=== PATIENT | male | born 1975 | race Caucasian/White ===

== ENCOUNTER → 2019-06-11 08:25 | Outpatient (BNVA) | payer MEDICARE, SELFPAY | PROVIDERS: Referring Provider Nurse Practitioner; Visit Provider Specialist | DX: G62.9 Polyneuropathy, unspecified (principal) | CPT/HCPCS: 99204; 99214 ==

== ENCOUNTER → 2019-06-18 08:10 | Outpatient (BNVA) | payer MEDICARE, SELFPAY | PROVIDERS: PCP Nurse Practitioner Family; Visit Provider Anesthesiology | DX: M48.061 Spinal stenosis, lumbar region without neurogenic claudication (principal); M51.36 Other intervertebral disc degeneration, lumbar region; M54.16 Radiculopathy, lumbar region; M50.30 Other cervical disc degeneration, unspecified cervical region; M54.9 Dorsalgia, unspecified; G62.9 Polyneuropathy, unspecified; G43.909 Migraine, unspecified, not intractable, without status migrainosus; Z79.891 Long term (current) use of opiate analgesic | CPT/HCPCS: 99214 ==

== ENCOUNTER → 2019-08-06 08:02 | Outpatient (BNVA) | payer MEDICARE, SELFPAY | PROVIDERS: PCP Nurse Practitioner Family; Visit Provider Anesthesiology | DX: M47.812 Spondylosis without myelopathy or radiculopathy, cervical region (principal); M50.30 Other cervical disc degeneration, unspecified cervical region; M48.061 Spinal stenosis, lumbar region without neurogenic claudication; M54.16 Radiculopathy, lumbar region; M51.36 Other intervertebral disc degeneration, lumbar region; G62.9 Polyneuropathy, unspecified; Z79.891 Long term (current) use of opiate analgesic | CPT/HCPCS: 99214 ==

== ENCOUNTER 2019-10-28 14:08 | Outpatient (CLI) | payer MEDICARE, SELFPAY ==
--- NOTE | 2019-10-28 14:32 | MRR_ITS ---
PROCEDURE INFORMATION: Exam: MR Lumbar Spine Without and With Contrast. Exam date and time: 10/28/2019 3:00 PM Age: 44 years old Clinical indication: Low back pain; Patient HX: Lumbar pain chronic/sciatica/right leg weakness; Additional info: Spinal stenosis of lumbar region with neurogenic claudicatio TECHNIQUE: Imaging protocol: Multiplanar magnetic resonance images of the lumbar spine without and with intravenous contrast. Contrast material: PROHANCE; Contrast volume: 17 ml; Contrast route: IV; COMPARISON: MRI Lumbar Spine w/o [id number] 12/12/2018 4:38 PM FINDINGS: Vertebrae: There is an intraosseous hemangioma in T5 visualized on the surgical instrument maker. There is mild dextroscoliosis. The lumbar vertebral body heights are maintained and unchanged compared to the prior exam. A few small intraosseous hemangiomas are noted with the most prominent at left L1 pedicle and L2 vertebral body. There is diffuse desiccation of all discs in the lumbar spine. There are hypertrophic changes of the facet joints but no critical stenosis. Spinal epidural space: No enhancing epidural fluid collection. Spinal cord: The conus ends posterior to L1/L2. L1-L2: At L1-L2, there is no interval change with disc space narrowing but no disc bulge protrusion or critical stenosis. L2-L3: At L2-L3, postoperative changes with narrow posterior laminectomy defect is again noted. There is an unchanged small disc bulge and facet and ligamentum flavum hypertrophy with unchanged moderate canal stenosis. Mild foraminal narrowing is noted and is unchanged. L3-L4: At L3-L4, postoperative changes of narrow posterior midline laminectomy are again noted with diffuse disc bulge, facet and ligamentum flavum hypertrophy resulting in moderate to severe central canal stenosis unchanged since the prior exam. Previously visualized right-sided sub articular disc protrusion with inferior extension into the right lateral recess is unchanged in appearance. L4-L5: At L4-L5, there are postoperative changes of prior laminectomy. There is diffuse disc bulge with facet and ligamentum flavum hypertrophy resulting in severe stenosis unchanged since the prior exam. Bilateral foraminal narrowing is unchanged in appearance. Disc bulge results in narrowing at the left L4 lateral recess and left foramina. L5-S1: At L5-S1, postoperative changes of prior laminectomy are noted with moderate central canal stenosis due to diffuse disc bulge and facet and ligamentum flavum hypertrophy. The disc results in unchanged foraminal narrowing right greater than left due to asymmetry of the disc bulge. The greatest enhancing scar tissue is noted adjacent to the disc protrusion and stenosis at L5-S1 especially along the right anterior aspect of the thecal sac extending into the right foramina series 11, image 27. Sacrum/coccyx: There is a transitional lumbosacral junction with partial lumbarization of the S1 vertebral body. Facet hypertrophy results in greater left foraminal narrowing. At S1-2, there is a rudimentary disc space without disc bulge or protrusion. There is mild foraminal narrowing right greater than left due to the facet hypertrophy. Transitional lumbosacral junction with lumbarization of S1 as above. There is mild enhancing scar tissue at all of the operative levels from L3-L4 to S1. 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 No discitis or osteomyelitis. Kidneys and ureters: Probable renal cortical cysts are noted and unchanged on the coronal images. Bladder: Postoperative changes and artifact are noted in the cervical spine on surgical instrument maker images. Probable artifact results in a flattened appearance of the cervical spinal cord at the level of the C3-C4 disc space. Soft tissues: Unremarkable. MR/MR lumbar spine wo/w con [id number] IMPRESSION: 1. Marked narrowing of the cervical spinal canal at C3-C4 on the surgical instrument maker images with flattening of the ventral spinal cord and cord edema concerning for significant stenosis or myelopathy. 2. Unchanged exam. Unchanged congenitally small canal with multilevel disc bulging facet hypertrophy and ligamentum min in flavum hypertrophy resulting in moderate to severe central canal stenosis most severe at L4-L5. No new disc bulge or protrusion. 3. Unchanged right subarticular disc protrusion with inferior extension and encroachment on the right L4 lateral recess. 4. There is some prominent enhancing scar tissue adjacent to the disc bulge/protrusion at L5-S1.
== END 2019-10-28 14:09 | disposition home or self-care (01) ==
LOC: RADWPI 14:22
PROVIDERS: Family Provider Nurse Practitioner Family; PCP Nurse Practitioner Family; Visit Provider Neurological Surgery
DX: M48.062 Spinal stenosis, lumbar region with neurogenic claudication (principal); M51.26 Other intervertebral disc displacement, lumbar region
CPT/HCPCS: 72158; A9579

== ENCOUNTER → 2019-12-09 08:22 | Outpatient (BNVA) | payer MEDICARE, SELFPAY | PROVIDERS: Family Provider Nurse Practitioner Family; PCP Nurse Practitioner Family; Visit Provider Anesthesiology | DX: M51.36 Other intervertebral disc degeneration, lumbar region (principal); M48.061 Spinal stenosis, lumbar region without neurogenic claudication; M54.16 Radiculopathy, lumbar region; G62.9 Polyneuropathy, unspecified; M50.30 Other cervical disc degeneration, unspecified cervical region; M47.812 Spondylosis without myelopathy or radiculopathy, cervical region; Z79.891 Long term (current) use of opiate analgesic | CPT/HCPCS: 99214 ==

== ENCOUNTER 2019-12-09 17:50 | Emergency (ER) | payer MEDICARE, SELFPAY ==
[2019-12-09 18:35] VITALS: BP 165/86; PULSE 71; RESP 16; TEMP 36.8; O2SAT 94; BMI 35.2
--- NOTE | 2019-12-09 19:00 | XRR_ITS ---
PROCEDURE INFORMATION: Exam: XR Chest, 1 View Exam date and time: 12/09/2019 7:25 PM Age: 44 years old Clinical indication: Chest pain; Prior surgery; Surgery type: Neck; Additional info: Chest pain x 2 days, leg swelling TECHNIQUE: Imaging protocol: XR of the chest Views: 1 view. COMPARISON: CTA Chest-Pulmonary Emb [id number] 09/25/2017 3:03 PM FINDINGS: Lungs: Lungs are well aerated without a focal area of consolidation. Pleural space: Unremarkable. No pleural effusion. No pneumothorax. Heart/Mediastinum: Unremarkable. No cardiomegaly. Bones/joints: Prior surgical fixation of the caudal aspect of the cervical spine. XR/XR chest 1V portable [id number] IMPRESSION: Lungs are well aerated without a focal area of consolidation.
[2019-12-09 19:28] LABS: Basophils % 0.7 %; Eosinophils # 0.1 10^3/uL (0.0-0.8); Eosinophils % 1.9 %; Hematocrit 38.3 % (42.0-52.0); Hemoglobin 12.3 g/dL (11.7-16.6); Lymphocytes # 1.6 10^3/uL (0.8-4.8); Lymphocytes % 27.4 %; Mean Corpuscular HGB Conc 32.1 g/dL (30.0-36.0); Mean Corpuscular Hemoglobin 27.6 pg (28.0-34.0); Mean Corpuscular Volume 85.9 fL (80-94); Mean Platelet Volume 10.4 fL (7.4-10.4); Monocytes # 0.4 10^3/uL (0.2-0.9); Monocytes % 7.3 %; Neutrophils # 3.67 10^3/uL (1.8-7.7); Neutrophils % 62.5 %; Nucleated Red Blood Cells % 0 %; Platelet Count 253 10^3/cmm (130-400); Red Blood Count 4.46 10^6/uL (4.1-5.3); White Blood Count 5.9 10^3/uL (4.0-10.0)
[2019-12-09 19:41] LABS: Troponin(5th) Baseline 7 ng/L (0-15)
[2019-12-09 19:55] LABS: Alanine Aminotransferase 24 U/L (0-41); Albumin Level 4.6 g/dL (3.5-5.2); Alkaline Phosphatase 75 IU/L (40-130); Anion Gap 14.5 (5-19); Aspartate Amino Transferase 24 U/L (0-40); Blood Urea Nitrogen 12 mg/dL (6-20); Calcium 9.2 mg/dL (8.5-10.5); Carbon Dioxide 31 mmol/L (22-29); Chloride 97 mmol/L (98-107); Globulin 2.1 g/dL (1.3-4.6); Glomerular Filtration Rate 92.1 mL/min (90-130); Glucose 114 mg/dL (65-115); NT Pro B Type Natriuretic Pept 92 pg/mL (0-125); Osmolality Calculated 285 mOsm/kg (285-295); Potassium 3.5 mmol/L (3.5-5.1); Sodium 139 mmol/L (136-145); Total Bilirubin 0.2 mg/dL (0.15-1.2); Total Protein 6.7 g/dL (6.6-8.7)
--- NOTE | 2019-12-09 21:00 | ECG_ITS ---
[facility] Test Date: 2019-12-09 Pat Name: José Antonio Ybarra Department: Room: Gender: Male Customer Relations Representative: : 1975 Requested By: Melissa Manzo Order Number: [id number] Heidi MD: Patience Arnold M.D. Measurements Intervals [place] Rate: 65 P: 44 [place]: 168 QRS: 15 QRSD: 111 T: -4 QT: 442 QTc: 460 Interpretive Statements SINUS RHYTHM MODERATE INTRAVENTRICULAR CONDUCTION DELAY [110+ ms QRS DURATION] NONSPECIFIC T-WAVE ABNORMALITY No previous ECG available for comparison Electronically Signed On 12-10-2019 22:44:58 CDT by Patience Arnold M.D. [id number]
[2019-12-09 21:50] VITALS: BP 148/86; PULSE 72; O2SAT 94
[2019-12-09 21:56] LABS: Troponin 5 2HR 6.98 ng/L (0-15)
[2019-12-09 22:08] LABS: Troponin 5 2HR Delta -0.02 ABS# (0-10)
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
[2019-12-09 22:55] LABS: INR 0.94 (0.8-1.2)
[2019-12-09 22:58] LABS: D Dimer <= 0.27 ug/mIFEU (0-0.59)
[2019-12-10] VITALS: BP 136/77; PULSE 68; RESP 16; O2SAT 96
[2019-12-10 00:58] VITALS: BP 142/84; PULSE 77; RESP 16; O2SAT 96
--- NOTE | 2019-12-10 12:44 | DCPLANNER ---
daycare manager had message to schedule a follow up appointment for patient with [facility]. daycare manager called [facility], spoke with Nayana, gave clinic patients information. daycare manager was told that patients information would be printed and reviewed. Clinic will call patient with appointment information.
--- NOTE | 2019-12-11 08:25 | DCPLANNER ---
Patient has a follow up appointment scheduled for Sunday, December 15, 2019 at 1:[address] Arnold. Clinic will call patient with appointment information.
--- NOTE | 2019-12-18 12:48 | DCPLANNER ---
Patient did attend appointment scheduled for 12.15.19 with [facility].
== END 2019-12-10 01:01 | disposition home or self-care (01) ==
PROVIDERS: Physician Assistant; Emergency Provider Emergency Medicine; PCP Nurse Practitioner Family
DX: R07.9 Chest pain, unspecified (principal); R06.00 Dyspnea, unspecified; R60.0 Localized edema; Z79.82 Long term (current) use of aspirin; M51.36 Other intervertebral disc degeneration, lumbar region; M48.061 Spinal stenosis, lumbar region without neurogenic claudication; M54.16 Radiculopathy, lumbar region; G62.9 Polyneuropathy, unspecified; M50.30 Other cervical disc degeneration, unspecified cervical region; M47.812 Spondylosis without myelopathy or radiculopathy, cervical region; Z79.891 Long term (current) use of opiate analgesic
CPT/HCPCS: 12345; 36415; 71045; 80053; 83605; 83880; 84484; 85025; 85378; 85610; 93005; 99214; 99282; 99284

== ENCOUNTER 2019-12-31 07:53 | Outpatient (CLI) | payer MEDICARE, SELFPAY ==
[2019-12-31 08:01] VITALS: BMI 34.7
--- NOTE | 2019-12-31 08:11 | ECG_ITS ---
[facility] Test Date: 2019-12-31 Pat Name: José Antonio Ybarra Department: Room: Gender: Male Electronic Engineering Technician: Aida Trenton : 1975 Requested By: Patience Arnold Order Number: [id number] Heidi MD: Patience Arnold M.D. Interpretive Statements NAME OF STUDY: LEXISCAN SESTAMIBI STRESS TEST INDICATION: Chest Pain PROCEDURE: At the baseline, the blood pressure was 145/86 mmHg, oxygen saturation 96% with a heart rate of 55 bpm. The electrocardiogram showed sinus bradycardia, normal axis with nonspecific T wave inversion in lead III, V3, V4 and V5. The Lexiscan was infused over a period of 20 seconds. A total of 0.4 milligrams of Lexiscan was infused. The stress phase was continued for a total of 5 minutes. Heart rate at the end of the stress phase was 75 bpm, oxygen saturation 97% with a blood pressure 137/86 mmHg. The EKG at the peak infusion revealed sinus rhythm with no significant ST-T wave changes. Sestamibi was injected 20 seconds after the Lexiscan infusion. Blood pressure at the end of the recovery phase was 133/84 mmHg, oxygen saturation 96% with a heart rate of 74 beats per minute. CONCLUSION: 1. No significant EKG changes with the LexiScan infusion. 2. No LexiScan induced chest pain or cardiac arrhythmia. 3. Normal blood pressure and heart rate response. 4. Sestamibi/sestamibi perfusion scan pending; see separate report. Electronically Signed On 12-31-2019 13:27:07 CDT by Patience Arnold M.D. [id number]
--- NOTE | 2019-12-31 08:12 | NMCV_ITS ---
NM alyson perf SPECT r/s* [id number] José Antonio Ybarra Age: 44 Gender: M : 1975 Exam Date: 12/31/2019 08:54 Ordering Phys: Patience Arnold MD ([email or web address]) Technologist: MOIZ Coats Exam [facility]: [facility] Indications: CHEST PAIN STRESS TEST [facility] IMAGE PROTOCOL Rest/Stress 1 Lexiscan Day Radiopharmaceutical Dose (mCi) Administration Site Administered by Rest: Tc-99m 10.9 IV MOIZ Sanchez Sestamibi Stress:Tc-99m 32.7 IV MOIZ Coats Sestamisaleem Rest: 31-Dec-2019 60 Discovery 630 Stress: 31-Dec-2019 30 Discovery 630 0.4mg Lexiscan. Images obtained in supine and prone position. SPECT RESULTS Technical Quality: Excellent Raw Data Analysis: Normal Image Corrections: No attenuation or motion correction applied Summed Stress Score: 0 Summed Rest Score: 0 Summed Difference Score: 0 PERFUSION FINDINGS Small sized perfusion abnormality of mild severity of apical lateral wall on stress images. FUNCTIONAL RESULTS (calculated via Gated SPECT) Stress Image LV EF (%): 53 Stress EDV (mL):195 TID: 0.96 Stress ESV (mL):92 FUNCTIONAL FINDINGS: The left ventricle is normal in size. Transient Ischemia Dilatation of 0.96. There is normal left ventricular systolic function. The left ventricular ejection fraction is normal with a value of 53%. There is normal left ventricular wall thickening. IMPRESSIONS 1. Small sized reversible perfusion abnormality of mild severity of apical lateral wall. This may be suggestive of a small area of ischemia in circumflex artery territory. 2. Overall left ventricular systolic function is normal without regional wall motion abnormalities. 3. The left ventricular ejection fraction is normal with a value of 53%. 4. No prior similar studies to compare. Patience Arnold MD (Electronically Signed) Final Date: 01 January 2020 16:42 S
[2019-12-31 10:25] VITALS: BP 136/95; PULSE 78
[2019-12-31] MEDS: regadenoson 0.4 Mg/5 ml Syringe IVP (10:25)
== END 2019-12-31 07:54 | disposition home or self-care (01) ==
LOC: CDL 07:53
PROVIDERS: PCP Nurse Practitioner Family; Visit Provider Internal Medicine Cardiovascular Disease
DX: R07.9 Chest pain, unspecified (principal)
CPT/HCPCS: 78452; 93017; A9500; J2785

== ENCOUNTER → 2020-02-19 13:15 | Outpatient (BNVA) | payer MEDICARE, SELFPAY | PROVIDERS: PCP Nurse Practitioner Family; Visit Provider Anesthesiology | DX: M48.061 Spinal stenosis, lumbar region without neurogenic claudication (principal); M54.16 Radiculopathy, lumbar region; M51.36 Other intervertebral disc degeneration, lumbar region; M50.30 Other cervical disc degeneration, unspecified cervical region; M47.812 Spondylosis without myelopathy or radiculopathy, cervical region; G62.9 Polyneuropathy, unspecified; Z09 Encounter for follow-up examination after completed treatment for conditions other than malignant neoplasm; Z79.891 Long term (current) use of opiate analgesic | CPT/HCPCS: 99214 ==

== ENCOUNTER → 2020-04-14 08:56 | Outpatient (BNVA) | payer MEDICARE, SELFPAY | PROVIDERS: PCP Nurse Practitioner Family; Visit Provider Anesthesiology | DX: Z09 Encounter for follow-up examination after completed treatment for conditions other than malignant neoplasm (principal); M51.36 Other intervertebral disc degeneration, lumbar region; M48.061 Spinal stenosis, lumbar region without neurogenic claudication; M54.16 Radiculopathy, lumbar region; M47.812 Spondylosis without myelopathy or radiculopathy, cervical region; M50.30 Other cervical disc degeneration, unspecified cervical region; G62.9 Polyneuropathy, unspecified; Z79.891 Long term (current) use of opiate analgesic | CPT/HCPCS: 99214 ==

== ENCOUNTER → 2020-06-16 08:51 | Outpatient (BNVA) | payer MEDICARE, SELFPAY | PROVIDERS: PCP Nurse Practitioner Family; Visit Provider Nurse Practitioner | DX: M51.36 Other intervertebral disc degeneration, lumbar region (principal); M47.812 Spondylosis without myelopathy or radiculopathy, cervical region; M50.30 Other cervical disc degeneration, unspecified cervical region; M54.16 Radiculopathy, lumbar region; G62.9 Polyneuropathy, unspecified; Z79.891 Long term (current) use of opiate analgesic | CPT/HCPCS: 99213; 99214 ==

== ENCOUNTER → 2020-08-09 11:27 | Outpatient (BNVA) | payer MEDICARE, SELFPAY | PROVIDERS: PCP Nurse Practitioner Family; Visit Provider Internal Medicine Cardiovascular Disease | DX: R06.00 Dyspnea, unspecified (principal); R60.0 Localized edema | CPT/HCPCS: 80048; 83735; 83880 ==

== ENCOUNTER → 2020-08-11 08:40 | Outpatient (BNVA) | payer MEDICARE, SELFPAY | PROVIDERS: PCP Nurse Practitioner Family; Visit Provider Nurse Practitioner | DX: M51.36 Other intervertebral disc degeneration, lumbar region (principal); M54.16 Radiculopathy, lumbar region; M48.061 Spinal stenosis, lumbar region without neurogenic claudication; M50.30 Other cervical disc degeneration, unspecified cervical region; M47.812 Spondylosis without myelopathy or radiculopathy, cervical region; G62.9 Polyneuropathy, unspecified; G43.909 Migraine, unspecified, not intractable, without status migrainosus; Z79.891 Long term (current) use of opiate analgesic | CPT/HCPCS: 99213 ==

== ENCOUNTER → 2020-09-22 09:09 | Outpatient (BNVA) | payer MEDICARE, SELFPAY | PROVIDERS: PCP Nurse Practitioner Family; Referring Provider Nurse Practitioner Family; Visit Provider Specialist | DX: S83.207A Unspecified tear of unspecified meniscus, current injury, left knee, initial encounter (principal); X58.XXXA Exposure to other specified factors, initial encounter | CPT/HCPCS: 73560; 73565 ==

== ENCOUNTER 2020-09-30 12:25 | Outpatient (CLI) | payer MEDICARE, SELFPAY ==
--- NOTE | 2020-09-30 13:00 | MR_ITS ---
WS: [id number] MRI LEFT KNEE NONCONTRAST TECHNIQUE: Axial PD, coronal PD fat sat, coronal PD, sagittal PD, and sagittal PD fat-sat images obta yosid. CLINICAL INFORMATION: M25.569 - Pain in unspecified knee COMPARISON: MRI September 29, 2017 FINDINGS: Distal quadriceps and patella tendons are intact. Hypertrophic patella. Small suprapatellar effusion. Normal ACL and PCL. Prepatellar and infrapatellar soft tissue edema. Normal lateral meniscus. Chroni c intrasubstance signal abnormality posterior horn medial meniscus similar to the prior study. Mild c hondromalacia involving the medial and lateral joint compartments. Advanced chondro malacia patella worse involving the lateral patella facet with focal chondral defect s. This is progressed since 2018. No subchondral edema. Normal medial collateral ligament. Normal LCL . MR/MR knee LT wo con* [id number] IMPRESSION: 1. Normal anterior and posterior cruciate ligaments. 2. Small suprapatellar effusion. 3. Moderate joint space narrowing medial joint compartment with chondromalacia . Tiny amount of subchondral edema. 4. No acute appearing meniscal tears. Chronic intrasubstance signal abnormalit y posterior horn medial meniscus unchanged from previous. 5. 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 This is progressed from 2018. No subchondral edema. 6. Medial and lateral collateral ligaments appear intact. 7. No other significant changes from previous.
== END 2020-09-30 12:26 | disposition home or self-care (01) ==
LOC: RADSHAW 12:28
PROVIDERS: PCP Nurse Practitioner Family; Visit Provider Specialist
DX: M25.562 Pain in left knee (principal); M22.42 Chondromalacia patellae, left knee; M25.462 Effusion, left knee
CPT/HCPCS: 73721

== ENCOUNTER → 2020-10-07 08:52 | Outpatient (BNVA) | payer MEDICARE, SELFPAY | PROVIDERS: PCP Nurse Practitioner Family; Visit Provider Nurse Practitioner | DX: Z09 Encounter for follow-up examination after completed treatment for conditions other than malignant neoplasm (principal); M51.36 Other intervertebral disc degeneration, lumbar region; M54.16 Radiculopathy, lumbar region; M48.061 Spinal stenosis, lumbar region without neurogenic claudication; M47.812 Spondylosis without myelopathy or radiculopathy, cervical region; M50.30 Other cervical disc degeneration, unspecified cervical region; G62.9 Polyneuropathy, unspecified; Z79.891 Long term (current) use of opiate analgesic | CPT/HCPCS: 99213; 99214 ==

== ENCOUNTER 2020-11-02 08:59 | Outpatient (RCR) | payer MEDICARE, SELFPAY | END 2020-11-24 23:59 | disposition home or self-care (01) | LOC: SPT 08:59 | PROVIDERS: PCP Nurse Practitioner Family; Referring Provider Specialist; Visit Provider Specialist | DX: M17.12 Unilateral primary osteoarthritis, left knee (principal); M17.11 Unilateral primary osteoarthritis, right knee | CPT/HCPCS: 97110; 97161 ==

== ENCOUNTER 2020-11-25 06:00 | Outpatient (RCR) | payer MEDICARE, SELFPAY | END 2020-12-25 23:59 | disposition home or self-care (01) | LOC: SPT 06:00 | PROVIDERS: PCP Nurse Practitioner Family; Referring Provider Specialist; Visit Provider Specialist | DX: M17.11 Unilateral primary osteoarthritis, right knee (principal) | CPT/HCPCS: 97110 ==

== ENCOUNTER → 2020-12-08 08:40 | Outpatient (BNVA) | payer MEDICARE, SELFPAY | PROVIDERS: PCP Nurse Practitioner Family; Visit Provider Nurse Practitioner | DX: M51.36 Other intervertebral disc degeneration, lumbar region (principal); M54.16 Radiculopathy, lumbar region; M48.061 Spinal stenosis, lumbar region without neurogenic claudication; M47.812 Spondylosis without myelopathy or radiculopathy, cervical region; M50.30 Other cervical disc degeneration, unspecified cervical region; M17.12 Unilateral primary osteoarthritis, left knee; G62.9 Polyneuropathy, unspecified; Z79.891 Long term (current) use of opiate analgesic | CPT/HCPCS: 99213 ==

== ENCOUNTER 2020-12-26 06:00 | Outpatient (RCR) | payer MEDICARE, SELFPAY | END 2021-01-25 23:59 | disposition home or self-care (01) | LOC: SPT 06:00 | PROVIDERS: PCP Nurse Practitioner Family; Referring Provider Specialist; Visit Provider Specialist | DX: M17.0 Bilateral primary osteoarthritis of knee (principal) | CPT/HCPCS: 97110 ==

== ENCOUNTER 2021-01-05 08:22 | Outpatient (CLI) | payer MEDICARE, SELFPAY ==
--- NOTE | 2021-01-05 08:45 | USCV_ITS ---
King José Antonio Age: 45 Gender: M : 1975 Exam Date: 01/05/2021 08:45 Ordering Phys: Patience Arnold MD ([email or web address]) Technologist: RASHAAD Exam Location: [facility] [place] Indication: EDEMA, CHEST PAIN, HTN BP: 138 / 91 HR: 53 Rhythm: Sinus Technical Quality: Good MEASUREMENTS (Male / Female) Normal Values 2D ECHO LV Diastolic Diameter PLAX 5.9 cm 4.2 - 5.9 / 3.9 - 5.3 cm LV Systolic Diameter PLAX 3.9 cm IVS Diastolic Thickness 1.6 cm 0.6 - 1.0 / 0.6 - 0.9 cm IVS Systolic Thickness 2.0 cm LVPW Diastolic Thickness 1.5 cm 0.6 - 1.0 / 0.6 - 0.9 cm LVPW Systolic Thickness 2.0 cm LVOT Diameter 2.0 cm LV Ejection Fraction 2D Teich 61.2 % LV Ejection Fraction MOD 2C 46.8 % LV Ejection Fraction 2C AL 44.4 % LA Diameter 3.2 cm LA Width 3.6 cm LA Height 4.6 cm RA Width 3.9 cm RA Height 4.7 cm Aorta at Sinotubular Diameter 3.0 cm M-MODE LV Diastolic Diameter MM 5.9 cm 4.2 - 5.9 / 3.9 - 5.3 cm LV Systolic Diameter MM 4.3 cm LV Ejection Fraction MM Teich 52.4 % IVS Diastolic Thickness MM 1.1 cm 0.6 - 1.0 / 0.6 - 0.9 cm IVS Systolic Thickness MM 1.8 cm LVPW Diastolic Thickness MM 1.6 cm 0.6 - 1.0 / 0.6 - 0.9 cm LVPW Systolic Thickness MM 2.1 cm Aortic Annulus Diameter 4.5 cm LA Ao Ratio MM 0.7 MV E Point Septal Separation 0.4 cm DOPPLER AV Peak Velocity 141.0 cm/s LVOT Peak Velocity 83.0 cm/s AV Area Cont Eq vti 1.9 cm squared AV Area Cont Eq pk 1.9 cm squared MV Peak Velocity 95.0 cm/s MV Area PHT 4.1 cm squared Mitral E to A Ratio 1.4 MV E' Velocity 49.5 cm/s Mitral E to MV E' Ratio 8.5 Mitral E to LV E' Lateral Ratio 6.1 Mitral E to LV E' Septal Ratio 13.9 TV Peak E Velocity 58.0 cm/s Right Atrial Pressure 3.0 mmHg PV Peak Velocity 116.0 cm/s RV Acceleration Time 0.1 s RV Ejection Time 0.3 s RV AcT/ET 0.3 FINDINGS Left Ventricle Normal left ventricular cavity size. Normal left ventricular wall thickness. Normal left ventricular systolic function. Left ventricular ejection fraction is estimated at 50-55 %. No regional wall motion abnormalities. Normal diastolic function. Grade II diastolic dysfunction, moderately elevated filling pressures. Flattened septum in systole consistent with right ventricle pressure overload. Right Ventricle Moderately dilated right ventricle with mildly to moderately decreased right venricular systolic function. RVSP could not be calculated due to incomplete tricuspid regurgitation velocity profile. Right Atrium Mildly increased right atrial size. Left Atrium Mildly increased left atrial size. Mitral Valve Mildly thickened mitral valve. No mitral valve stenosis. Trace mitral valve regurgitation. Aortic Valve Mildly thickened and trileaflet aortic valve. No aortic valve stenosis. No aortic valve regurgitation. Tricuspid Valve Structurally normal tricuspid valve. Mild tricuspid valve regurgitation. Pulmonic Valve Pulmonic valve not well visualized. Trace pulmonary valve regurgitation. Pericardium No pericardial effusion. Aorta Normal size aortic root and proximal ascending aorta. CONCLUSIONS 1. Normal left ventricular cavity size, wall thickness and systolic function. Left ventricular ejection fraction is estimated at 50-55 %. No regional wall motion abnormalities. Normal diastolic function. Grade II diastolic dysfunction, moderately elevated filling pressures. 2. Moderately dilated right ventricle with mildly to moderately decreased right venricular systolic 3. Mild biatrial enlargement. 4. Mild tricuspid valve regurgitation. 5. No prior similar studies to compare. Patienec Arnold MD (Electronically Signed) Final Date: 07 January 2021 22:01 S
[2021-01-05] MEDS: perflutren protein-a microsphr 0.22 mg/mL SDV 3 mL IV (09:25)
== END 2021-01-05 08:23 | disposition home or self-care (01) ==
LOC: US 08:23
PROVIDERS: PCP Nurse Practitioner Family; Visit Provider Internal Medicine Cardiovascular Disease
DX: R60.9 Edema, unspecified (principal); R07.9 Chest pain, unspecified; I10 Essential (primary) hypertension; I07.1 Rheumatic tricuspid insufficiency
CPT/HCPCS: C8929

== ENCOUNTER → 2021-01-07 09:23 | Outpatient (BNVA) | payer MEDICARE, SELFPAY | PROVIDERS: PCP Nurse Practitioner Family; Visit Provider Nurse Practitioner | DX: M51.36 Other intervertebral disc degeneration, lumbar region (principal); M48.061 Spinal stenosis, lumbar region without neurogenic claudication; M54.16 Radiculopathy, lumbar region; M50.30 Other cervical disc degeneration, unspecified cervical region; G43.909 Migraine, unspecified, not intractable, without status migrainosus; G62.9 Polyneuropathy, unspecified; M17.12 Unilateral primary osteoarthritis, left knee; Z79.891 Long term (current) use of opiate analgesic | CPT/HCPCS: 99213 ==

== ENCOUNTER 2021-01-16 23:43 | Emergency (ER) | payer MEDICARE, SELFPAY ==
[2021-01-16 23:46] VITALS: BP 111/74; PULSE 70; RESP 20; TEMP 36.9; O2SAT 92; BMI 34.0
--- NOTE | 2021-01-17 00:03 | XRR_ITS ---
PROCEDURE INFORMATION: Exam: XR Chest Exam date and time: 01/17/2021 12:03 AM Age: 45 years old Clinical indication: Sternal or substernal pain; Prior surgery; Surgery date: 6+ months; Surgery type: Neck; Additional info: Cp TECHNIQUE: Imaging protocol: XR of the chest. Views: 1 view. COMPARISON: CR XR knees AP WB w BI lmt ORTH 09/22/2020 9:16 AM FINDINGS: Lungs: Unremarkable. No consolidation. Pleural spaces: Unremarkable. No pleural effusion. No pneumothorax. Heart/Mediastinum: Cardiomegaly. Bones/joints: Unremarkable. XR/XR chest 1V portable [id number] IMPRESSION: Cardiomegaly, negative for infiltrate
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
[2021-01-17 00:26] LABS: Basophils % 0.4 %; Eosinophils # 0.1 10^3/uL (0.0-0.8); Eosinophils % 1.5 %; Hematocrit 38.5 % (42.0-52.0); Hemoglobin 12.5 g/dL (11.7-16.6); Lymphocytes # 2.2 10^3/uL (0.8-4.8); Lymphocytes % 29.4 %; Mean Corpuscular HGB Conc 32.5 g/dL (30.0-36.0); Mean Corpuscular Hemoglobin 27.9 pg (28.0-34.0); Mean Corpuscular Volume 85.9 fl (80-94); Mean Platelet Volume 10.2 fL (7.4-10.4); Monocytes # 0.5 10^3/uL (0.2-0.9); Monocytes % 7.2 %; Neutrophils # 4.51 10^3/uL (1.8-7.7); Neutrophils % 61.2 %; Nucleated Red Blood Cells % 0 %; Platelet Count 230 10^3/cmm (130-400); Red Blood Count 4.48 10^6/uL (4.1-5.3); Red Cell Distribution Width 13.1 % (12.1-15.1); White Blood Count 7.4 10^3/uL (4.0-10.0)
[2021-01-17 00:41] LABS: INR 0.97 (0.8-1.2)
[2021-01-17 00:48] LABS: Troponin(5th) Baseline 20 ng/L (0-15)
[2021-01-17 00:54] LABS: Alanine Aminotransferase 15 U/L (0-41); Albumin Level 4.3 g/dL (3.5-5.2); Alkaline Phosphatase 73 IU/L (40-130); Anion Gap 15.3 (5-19); Aspartate Amino Transferase 22 U/L (0-40); Blood Urea Nitrogen 24 mg/dL (6-20); Calcium 8.5 mg/dL (8.5-10.5); Carbon Dioxide 31 mmol/L (22-29); Chloride 98 mmol/L (98-107); Globulin 2.5 g/dL (1.3-4.6); Glucose 90 mg/dL (65-115); Lipase 12 U/L (13-60); Osmolality Calculated 296 mOsm/kg (285-295); Potassium 3.3 mmol/L (3.5-5.1); Sodium 141 mmol/L (136-145); Total Bilirubin 0.3 mg/dL (0.15-1.2); Total Protein 6.8 g/dL (6.6-8.7)
[2021-01-17] MEDS: ketorolac 30 mg/mL INJ IVP (00:58)
[2021-01-17] MEDS: orphenadrine 30 mg/mL Inj 2 mL 60 MG IM (01:00)
[2021-01-17] MEDS: sodium chloride 0.9% 1,000 ML 999 ML IV (01:48)
[2021-01-17] MEDS: potassium chloride ER 20 mEq Tablet PO (01:49)
[2021-01-17 01:58] VITALS: BP 108/66; PULSE 53; RESP 17; O2SAT 95
[2021-01-17 02:22] LABS: Troponin 5 2HR 16.49 ng/L (0-15)
[2021-01-17 02:25] LABS: Troponin 5 2HR Delta -3.51 ABS# (0-10)
[2021-01-17 03:22] VITALS: PULSE 53; RESP 17; O2SAT 97
== END 2021-01-17 03:22 | disposition home or self-care (01) ==
PROVIDERS: Emergency Provider Nurse Practitioner Family
DX: R07.89 Other chest pain (principal); R25.3 Fasciculation; E87.6 Hypokalemia; N17.9 Acute kidney failure, unspecified
CPT/HCPCS: 71045; 80053; 83690; 84484; 85025; 85610; 96361; 96372; 96374; 99284; J1885; J2360; J7030

== ENCOUNTER → 2021-02-10 10:35 | Outpatient (BNVA) | payer MEDICARE, SELFPAY | PROVIDERS: PCP Nurse Practitioner Family; Visit Provider Nurse Practitioner Family | DX: I50.810 Right heart failure, unspecified (principal); R06.02 Shortness of breath; Z09 Encounter for follow-up examination after completed treatment for conditions other than malignant neoplasm; I50.30 Unspecified diastolic (congestive) heart failure; I10 Essential (primary) hypertension | CPT/HCPCS: 80048; 83880 ==

== ENCOUNTER 2021-03-04 08:15 | Outpatient (CLI) | payer MEDICARE, SELFPAY | END 2021-03-04 08:16 | disposition home or self-care (01) | LOC: SLEEP 08:23 | PROVIDERS: PCP Nurse Practitioner Family; Visit Provider Internal Medicine Cardiovascular Disease | DX: G47.10 Hypersomnia, unspecified (principal) | CPT/HCPCS: G0399 ==

== ENCOUNTER → 2021-03-16 08:49 | Outpatient (BNVA) | payer MEDICARE, SELFPAY | PROVIDERS: PCP Nurse Practitioner Family; Visit Provider Anesthesiology | DX: G89.29 Other chronic pain (principal); M51.36 Other intervertebral disc degeneration, lumbar region; M48.061 Spinal stenosis, lumbar region without neurogenic claudication; M54.16 Radiculopathy, lumbar region; M47.812 Spondylosis without myelopathy or radiculopathy, cervical region; M50.30 Other cervical disc degeneration, unspecified cervical region; G62.9 Polyneuropathy, unspecified; Z79.891 Long term (current) use of opiate analgesic | CPT/HCPCS: 99214 ==

== ENCOUNTER 2021-05-12 20:00 | Outpatient (CLI) | payer MEDICARE, SELFPAY | END 2021-05-12 20:01 | disposition home or self-care (01) | LOC: SLEEP 05-13 05:38 | PROVIDERS: PCP Nurse Practitioner Family; Visit Provider Nurse Practitioner Family | DX: G47.31 Primary central sleep apnea (principal); R06.02 Shortness of breath; R94.39 Abnormal result of other cardiovascular function study; I10 Essential (primary) hypertension | CPT/HCPCS: 80053; 80061; 83735; 83880; 85025; 95811 ==

== ENCOUNTER 2021-08-10 08:13 | Outpatient (CLI) | payer MEDICARE, SELFPAY ==
[2021-08-10 10:29] LABS: Anion Gap 12.5 (5-19); Blood Urea Nitrogen 15 mg/dL (6-20); Calcium 9.2 mg/dL (8.5-10.5); Carbon Dioxide 29 mmol/L (22-29); Chloride 101 mmol/L (98-107); Glucose 97 mg/dL (65-115); Magnesium 2.1 mg/dL (1.7-2.3); NT Pro B Type Natriuretic Pept 15 pg/mL (0-125); Osmolality Calculated 289 mOsm/kg (285-295); Potassium 3.5 mmol/L (3.5-5.1); Sodium 139 mmol/L (136-145)
== END 2021-08-10 08:14 | disposition home or self-care (01) ==
PROVIDERS: PCP Nurse Practitioner Family; Visit Provider Internal Medicine Cardiovascular Disease
DX: I50.30 Unspecified diastolic (congestive) heart failure (principal); R06.02 Shortness of breath; R94.39 Abnormal result of other cardiovascular function study; I10 Essential (primary) hypertension
CPT/HCPCS: 80048; 83735; 83880

== ENCOUNTER → 2021-08-17 08:02 | Outpatient (BNVA) | payer MEDICARE, SELFPAY | PROVIDERS: PCP Nurse Practitioner Family; Visit Provider Podiatrist Foot & Ankle Surgery | DX: M79.672 Pain in left foot (principal) | CPT/HCPCS: 73630 ==

== ENCOUNTER → 2022-01-16 11:21 | Outpatient (BNVA) | payer MEDICARE, SELFPAY | PROVIDERS: PCP Nurse Practitioner Family; Visit Provider Internal Medicine Cardiovascular Disease | DX: I11.0 Hypertensive heart disease with heart failure (principal); I50.30 Unspecified diastolic (congestive) heart failure; I50.810 Right heart failure, unspecified | CPT/HCPCS: 99213 ==

== ENCOUNTER → 2022-06-22 10:35 | Outpatient (BNVA) | payer MEDICARE, SELFPAY | PROVIDERS: PCP Nurse Practitioner Family; Visit Provider Specialist | DX: G62.89 Other specified polyneuropathies (principal) | CPT/HCPCS: 95909; 95911 ==

== ENCOUNTER → 2022-07-12 12:46 | Outpatient (BNVA) | payer MEDICARE, SELFPAY | PROVIDERS: PCP Nurse Practitioner Family; Visit Provider Nurse Practitioner Family | DX: I11.0 Hypertensive heart disease with heart failure (principal); I50.30 Unspecified diastolic (congestive) heart failure | CPT/HCPCS: 99214 ==

== ENCOUNTER → 2023-02-15 08:28 | Outpatient (BNVA) | payer MEDICARE, SELFPAY | PROVIDERS: PCP Nurse Practitioner Family; Visit Provider Nurse Practitioner Family | DX: L40.8 Other psoriasis (principal); L82.1 Other seborrheic keratosis; L81.4 Other melanin hyperpigmentation; D22.5 Melanocytic nevi of trunk; L85.3 Xerosis cutis; L57.8 Other skin changes due to chronic exposure to nonionizing radiation; D48.5 Neoplasm of uncertain behavior of skin | CPT/HCPCS: 11102; 99214 ==

== ENCOUNTER → 2023-03-01 08:25 | Outpatient (BNVA) | payer MEDICARE, SELFPAY | PROVIDERS: PCP Nurse Practitioner Family; Visit Provider Dermatology | DX: D22.5 Melanocytic nevi of trunk (principal) | CPT/HCPCS: 11403; 12032 ==

== ENCOUNTER 2023-03-15 11:23 | Outpatient (RCR) | payer MEDICARE, SELFPAY | END 2023-03-27 23:59 | disposition home or self-care (01) | LOC: SPT 11:23 | PROVIDERS: PCP Nurse Practitioner Family; Visit Provider Physician Assistant | DX: Z98.1 Arthrodesis status (principal) | CPT/HCPCS: 97110; 97161 ==

== ENCOUNTER → 2023-03-27 15:07 | Outpatient (BNVA) | payer MEDICARE, SELFPAY | PROVIDERS: PCP Nurse Practitioner Family; Visit Provider Internal Medicine Cardiovascular Disease | DX: I11.0 Hypertensive heart disease with heart failure (principal); I50.30 Unspecified diastolic (congestive) heart failure; M51.36 Other intervertebral disc degeneration, lumbar region | CPT/HCPCS: 99214 ==

== ENCOUNTER 2023-03-28 06:00 | Outpatient (RCR) | payer MEDICARE, SELFPAY | END 2023-04-26 23:59 | disposition home or self-care (01) | LOC: SPT 06:00 | PROVIDERS: PCP Nurse Practitioner Family; Visit Provider Physician Assistant | DX: Z98.1 Arthrodesis status (principal) | CPT/HCPCS: 97110 ==

== ENCOUNTER 2023-04-27 06:00 | Outpatient (RCR) | payer MEDICARE, SELFPAY | END 2023-05-27 23:59 | disposition home or self-care (01) | LOC: SPT 06:00 | PROVIDERS: PCP Nurse Practitioner Family; Visit Provider Physician Assistant | DX: Z98.1 Arthrodesis status (principal) | CPT/HCPCS: 97110 ==

== ENCOUNTER 2023-05-28 06:00 | Outpatient (RCR) | payer MEDICARE, MEDICAID, SELFPAY | END 2023-06-27 23:59 | disposition home or self-care (01) | LOC: SPT 06:00 | PROVIDERS: PCP Nurse Practitioner Family; Visit Provider Physician Assistant | DX: Z98.1 Arthrodesis status (principal) | CPT/HCPCS: 97110 ==

== ENCOUNTER → 2023-07-10 12:02 | Outpatient (BNVA) | payer MEDICARE, MEDICAID, SELFPAY | PROVIDERS: PCP Nurse Practitioner Family; Visit Provider Nurse Practitioner Family | DX: S69.92XA Unspecified injury of left wrist, hand and finger(s), initial encounter (principal); W23.0XXA Caught, crushed, jammed, or pinched between moving objects, initial encounter | CPT/HCPCS: 73130 ==

== ENCOUNTER → 2023-08-16 08:27 | Outpatient (BNVA) | payer MEDICARE, SELFPAY | PROVIDERS: PCP Nurse Practitioner Family; Visit Provider Nurse Practitioner Family | DX: L40.8 Other psoriasis (principal); L82.1 Other seborrheic keratosis; L81.4 Other melanin hyperpigmentation; D22.5 Melanocytic nevi of trunk; L85.3 Xerosis cutis; L57.8 Other skin changes due to chronic exposure to nonionizing radiation; Z87.2 Personal history of diseases of the skin and subcutaneous tissue | CPT/HCPCS: 99214 ==

== ENCOUNTER → 2024-08-18 09:01 | Outpatient (BNVA) | payer MEDICARE, MEDICAID, SELFPAY | PROVIDERS: PCP Nurse Practitioner Family; Visit Provider Nurse Practitioner Family | DX: L40.8 Other psoriasis (principal); L82.1 Other seborrheic keratosis; L81.4 Other melanin hyperpigmentation; D22.5 Melanocytic nevi of trunk; L57.8 Other skin changes due to chronic exposure to nonionizing radiation; Z87.2 Personal history of diseases of the skin and subcutaneous tissue; L72.0 Epidermal cyst; D48.5 Neoplasm of uncertain behavior of skin | CPT/HCPCS: 10060; 11102; 99214 ==

== ENCOUNTER 2024-12-15 07:31 | Outpatient (RCR) | payer MEDICARE, MEDICAID, SELFPAY | END 2024-12-25 23:59 | disposition home or self-care (01) | LOC: SPT 07:31 | PROVIDERS: PCP Nurse Practitioner Family; Visit Provider Nurse Practitioner Family | DX: M54.17 Radiculopathy, lumbosacral region (principal) | CPT/HCPCS: 97110; 97161 ==

== ENCOUNTER 2024-12-26 05:00 | Outpatient (RCR) | payer MEDICARE, MEDICAID, SELFPAY | END 2025-01-25 23:59 | disposition home or self-care (01) | LOC: SPT 05:00 | PROVIDERS: PCP Nurse Practitioner Family; Visit Provider Nurse Practitioner Family | DX: M54.17 Radiculopathy, lumbosacral region (principal) | CPT/HCPCS: 97110 ==

== ENCOUNTER 2025-01-26 05:00 | Outpatient (RCR) | payer MEDICARE, MEDICAID, SELFPAY | END 2025-02-24 23:59 | disposition home or self-care (01) | LOC: SPT 05:00 | PROVIDERS: PCP Nurse Practitioner Family; Visit Provider Nurse Practitioner Family | DX: M54.17 Radiculopathy, lumbosacral region (principal) | CPT/HCPCS: 97110 ==

== ENCOUNTER → 2025-02-18 08:10 | Outpatient (BNVA) | payer MEDICARE, MEDICAID, SELFPAY | PROVIDERS: PCP Nurse Practitioner Family; Visit Provider Nurse Practitioner Family | DX: D29.4 Benign neoplasm of scrotum (principal); D22.5 Melanocytic nevi of trunk; L57.8 Other skin changes due to chronic exposure to nonionizing radiation; L81.4 Other melanin hyperpigmentation; L82.1 Other seborrheic keratosis; L40.8 Other psoriasis; Z87.2 Personal history of diseases of the skin and subcutaneous tissue; D48.5 Neoplasm of uncertain behavior of skin | CPT/HCPCS: 11102; 99214 ==